=== PATIENT | male | born 1980 | race Caucasian/White ===

== ENCOUNTER 2019-08-14 01:26 | Emergency (ER) | payer SELFPAY ==
[~2019-08-14] VITALS: Ht 182 cm; Wt 56.0 kg
[2019-08-14] MEDS ORDERED: LACTATED RINGERS 1,000 ML IV ONE ×2 (01:42→03:21)
[2019-08-14] MEDS ORDERED: ONDANSETRON 4 MG/2 ML (SDV) Z0FRAN IVP ONE ×3 (01:45→04:30)
[2019-08-14 01:57] LABS: BASOPHILS % (AUTO) 0 % (0-10); EOSINOPHILS # (AUTO) 0.2 10^3/uL (0.0-0.3); EOSINOPHILS % (AUTO) 3 % (0-10); HEMATOCRIT 43 % (40-54); HEMOGLOBIN 14.9 G/DL (13.3-17.7); LYMPHOCYTES # (AUTO) 1.7 X 10^3 (1.0-4.0); LYMPHOCYTES % (AUTO) 25 % (12-44); MEAN CORPUSCULAR HEMOGLOBIN 32 PG (25-34); MEAN CORPUSCULAR HGB CONC 35 G/DL (32-36); MEAN CORPUSCULAR VOLUME 92 FL (80-99); MEAN PLATELET VOLUME 9.6 FL (7.4-10.4); MONOCYTES # (AUTO) 0.4 X 10^3 (0.0-1.0); MONOCYTES % (AUTO) 6 % (0-12); NEUTROPHILS # (AUTO) 4.5 X 10^3 (1.8-7.8); NEUTROPHILS % (AUTO) 66 % (42-75); PLATELET COUNT 231 10^3/uL (130-400); WHITE BLOOD COUNT 6.8 10^3/uL (4.3-11.0)
[2019-08-14] MEDS ORDERED: RT-ALBUTEROL/IPRATROPIUM 3 ML (DUONEB) VIAL INH ONE (02:00)
[2019-08-14 02:05] LABS: INR 0.9 (0.8-1.4); PROTHROMBIN TIME PATIENT 12.6 SEC (12.2-14.7)
[2019-08-14 02:14] LABS: ALANINE AMINOTRANSFERASE 43 U/L (0-55); ALBUMIN 4.6 GM/DL (3.2-4.5); ALKALINE PHOSPHATASE 95 U/L (40-136); BILIRUBIN,TOTAL 0.6 MG/DL (0.1-1.0); BUN/CREATININE RATIO 9; CALCIUM 9.3 MG/DL (8.5-10.1); CARBON DIOXIDE 21 MMOL/L (21-32); CHLORIDE 109 MMOL/L (98-107); CREATININE SERUM 0.78 MG/DL (0.60-1.30); GFR ESTIMATED > 60; GLUCOSE 109 MG/DL (70-105); MAGNESIUM 1.9 MG/DL (1.6-2.4); POTASSIUM 4.3 MMOL/L (3.6-5.0); SODIUM 145 MMOL/L (135-145); TOTAL PROTEIN 7.2 GM/DL (6.4-8.2)
[2019-08-14] MEDS ORDERED: TETANUS,DIPTH,PERTUSS P/F (BOOSTRIX) 0.5 ML VIAL IM ONE (03:15)
[2019-08-14] MEDS ORDERED: SCOPOLAMINE 1.5 MG (TRANSDERM-SCOP) PATCH TD ONE (03:15)
[2019-08-14] MEDS ORDERED: MECLIZINE 25 MG (ANTIVERT) TAB PO ONE ×2 (03:15→04:00)
[2019-08-14] MEDS ORDERED: KETOROLAC 30 MG/ML VIAL IVP ONE (03:15)
--- NOTE | 2019-08-14 03:16 | ED General ---
General Chief Complaint: Dizziness/Syncope Stated Complaint: FALL DIZZINESS/HEADACHE NAUSEA EARS RINGING Nursing Triage Note: Patient presented to the ER [facility] with complaints of nausea, dizziness, headache and his ears "ringing". Patient states he began not feeling well yesterday. He states that he felt his heart was racing and he felt weak. Nursing Sepsis Screen: No Definite Risk Source of Information: Patient (LIMITED HISTORIAN) History of Present Illness Date Seen by Provider: Aug 14, 2019 Time Seen by Provider: 01:33 Initial Comments PT ARRIVES VIA POV WITH 2 FEMALES STATES ON TUESDAY NIGHT 08/11/19, HE WAS VERY INTOXICATED AND HAD UNWITNESSED "FALL" VS SYNCOPAL EPISODE IS UNKNOWN IF OR HOW LONG HE WAS UNCONSCIOUS PT HAS NO RECOLLECTION OF THE EVENT, OR ANYTHING BEFORE OR AFTER IT. [facility] STATES SINCE YESTERDAY/TUESDAY HE HAS HAD DIZZINESS, NAUSEA, EARS RINGING, AND PAIN TO BACK AND TOP OF HIS HEAD--HAS LACERATION TO HIS CHIN AND BRUISING AND SORENESS TO RIGHT SHOULDER WELL. ALSO C/O PAIN TO THE BACK OF HIS NECK, MORE ON THE LEFT SIDE. 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 STATES HE DIDN'T FEEL GOOD ALL DAY, AND ATE DINNER, BUT DID NOT FEEL THIS BAD UNTIL WAKING PRIOR TO ARRIVAL LAST TETANUS VACCINATION IS UNKNOWN PCP : DR. LOPEZ Allergies and Home Medications Allergies Coded Allergies: No Allergy Information Available (Unverified , 08/14/19) Home Medications Doxycycline Monohydrate 100 Mg Capsule, 100 MG PO BID Prescribed by: ERIK HOWARD on 08/14/19419 Hydrocodone Bit/Acetaminophen 1 Tab Tab, 1 EACH PO Q4H PRN for PAIN-MODERATE Prescribed by: ERIK HOWARD on 08/14/19441 Meclizine HCl 25 Mg Tablet, 25-50 MG PO Q6H Prescribed by: ERIK HOWARD on 08/14/19419 Methylprednisolone 4 Mg Tab.ds.pk, 4 MG PO UD Prescribed by: ERIK HOWARD on 08/14/19419 Mupirocin 1 Gm Oin.pf.norberto, 1 GM TP BID Prescribed by: ERIK HOWARD on 08/14/19419 Ondansetron 8 Mg Tab.rapdis, 8 MG PO Q6H Prescribed by: ERIK HOWARD on 08/14/19419 Scopolamine 1 Each Patch.td72, 1 EACH TD Q72 HOURS Prescribed by: ERIK HOWARD on 08/14/19419 Patient Home Medication List Home Medication List Reviewed: Yes Review of Systems Review of Systems Constitutional: No diaphoresis; dizziness, weakness EENTM: nose congestion, other (RINGING IN EARS); No ear discharge, No blurred vision Respiratory: cough (STATES HE HAS HAD A NON-PRODUCTIVE COUGH FOR A MONTH, WITH WHEEZING); No dyspnea on exertion, No short of breath; wheezing Cardiovascular: see HPI; No chest pain, No edema; palpitations Gastrointestinal: see HPI; No abdominal pain, No diarrhea; nausea; No vomiting Genitourinary: no symptoms reported Musculoskeletal: see HPI, neck pain Skin: see HPI Psychiatric/Neurological: See HPI, Headache; Denies Numbness, Denies Paresthesia, Denies Seizure, Denies Tingling, Denies Weakness Hematologic/Lymphatic: No Symptoms Reported Immunological/Allergic: no symptoms reported Past Tenglhp-Wckbjp-Defsci Hx Past Med/Social Hx: Reviewed and Corrections made Patient Social History Alcohol Use: Regular Use (AT LEAST A 6 PACK EVERY DAY AND VERY HEAVY AT TIMES) Number of Drinks Today: 6 Alcohol Beverage of Choice: Beer Recreational Drug Use: Yes (THC) Drug of Choice: THC Smoking Status: Current Everyday Smoker (> 1 PPD) Type Used: Cigarettes Recent Foreign Travel: No Contact w/Someone Who Travel: No Recent Infectious Disease Expo: No Recent Hopitalizations: No Immunizations Up To Date Tetanus Booster (TDap): More than 5yrs Seasonal Allergies Seasonal Allergies: No Past Medical History Surgeries: No Respiratory: No Cardiac: No Neurological: Yes Headaches /Migraines Genitourinary: No Gastrointestinal: No Musculoskeletal: No Endocrine: No HEENT: No Cancer: No Psychosocial: No Integumentary: No Blood Disorders: No Physical Exam Vital Signs Vital Signs - First Documented 08/14/19 01:57 Temp 36.8 Pulse 74 Resp 16 B/P (MAP) 142/88 (106) Pulse Ox 99 O2 Delivery Room Air Capillary Refill : Less Than 3 Seconds Height, Weight, BMI Height: '" Weight: lbs. oz. kg; 16.00 BMI Method: General Appearance: No Apparent Distress, Thin, Other (REEKS OF CIGARETTES, AND HAS ODOR OF ETOH) HEENT: PERRL/EOMI, TMs Normal, Normal ENT Inspection, Pharynx Normal, Other (HAS A 2 CM GAPING, SCABBED LACERATION TO LEFT SIDE OF CHIN, NO BLEEDING OR SIGNS OF INFECTION, NO DRAINAGE. APPEARS TO HAVE MILD ECCHYMOSIS BELOW BOTH EYES, BUT FEMALE WITH PT STATES THAT IT LOOKS NORMAL. NARES NORMAL. NO TENDERNESS TO FACIAL BONES. NO SWELLING TO FACE. NO TMJ TENDERNESS. ) Neck: Limited Range of Motion, Tender Lateral, Tender Midline Respiratory: No Accessory Muscle Use, No Respiratory Distress, Wheezing (DIFFUSE EXPIRATORY WHEEZING BILATERALLY) Cardiovascular: Regular Rate, Rhythm, No Edema, No JVD, No Murmur, Normal Peripheral Pulses Gastrointestinal: Normal Bowel Sounds, No Organomegaly, No Pulsatile Mass, Non Tender, Soft Back: Normal Inspection, No CVA Tenderness, No Vertebral Tenderness Extremity: Normal Capillary Refill, Normal Range of Motion, Non Tender, No Calf Tenderness, No Pedal Edema, Other (BRUISING TO ANTERIOR ASPECT OF RIGHT SHOULDER, WITH TENDERNESS, NO DEFORMITY. ) Neurologic/Psychiatric: Alert, Oriented x3, No Motor/Sensory Deficits, plum packer II- XII Norm as Tested, Other (SLOW MENTATION; UNABLE TO PERFORM CEREBELLAR TESTS DUE TO NAUSEA AND DIZZINESS. NO NYSTAGMUS) Skin: Normal Color, Warm/Dry, Other (2 CM GAPING LACERATION TO LEFT SIDE OF CHIN, WITH EARLY SCAB FORMATION. NO DRAINAGE OR BLEEDING. NO SIGNS OF INFECTION) Progress/Results/Core Measures Suspected Sepsis Recent Fever Within 48 Hours: No Infection Criteria Present: None New/Unexplained Altered Menta: No Sepsis Screen: No Definite Risk SIRS Temperature: Pulse: 74 Respiratory Rate: 16 Laboratory Tests 08/14/19 01:46: White Blood Count 6.8 Blood Pressure 142 /88 Mean: 106 Laboratory Tests 08/14/19 01:46: Creatinine 0.78, INR Comment 0.9, Platelet Count 231, Total Bilirubin 0.6 Results/Orders Lab Results Laboratory Tests Test 08/14/19 01:46 08/14/19 04:59 Range/Units White Blood Count 6.8 4.3-11.0 10^3/uL Red Blood Count 4.66 4.35-5.85 10^6/uL Hemoglobin 14.9 13.3-17.7 G/DL Hematocrit 43 40-54 % Mean Corpuscular Volume 92 80-99 FL Mean Corpuscular Hemoglobin 32 25-34 PG Mean Corpuscular Hemoglobin Concent 35 32-36 G/DL Red Cell Distribution Width 13.0 10.0-14.5 % Platelet Count 231 130-400 10^3/uL Mean Platelet Volume 9.6 7.4-10.4 FL Neutrophils (%) (Auto) 66 42-75 % Lymphocytes (%) (Auto) 25 12-44 % Monocytes (%) (Auto) 6 0-12 % Eosinophils (%) (Auto) 3 0-10 % Basophils (%) (Auto) 0 0-10 % Neutrophils # (Auto) 4.5 1.8-7.8 X 10^3 Lymphocytes # (Auto) 1.7 1.0-4.0 X 10^3 Monocytes # (Auto) 0.4 0.0-1.0 X 10^3 Eosinophils # (Auto) 0.2 0.0-0.3 10^3/uL Basophils # (Auto) 0.0 0.0-0.1 10^3/uL Prothrombin Time 12.6 12.2-14.7 SEC INR Comment 0.9 0.8-1.4 Activated Partial Thromboplast Time 24 24-35 SEC Sodium Level 145 135-145 MMOL/L Potassium Level 4.3 3.6-5.0 MMOL/L Chloride Level 109 H 98-107 MMOL/L Carbon Dioxide Level 21 21-32 MMOL/L Anion Gap 15 H 5-14 MMOL/L Blood Urea Nitrogen 7 7-18 MG/DL Creatinine 0.78 0.60-1.30 MG/DL Estimat Glomerular Filtration Rate > 60 BUN/Creatinine Ratio 9 Glucose Level 109 H 70-105 MG/DL Calcium Level 9.3 8.5-10.1 MG/DL Corrected Calcium 8.5-10.1 MG/DL Magnesium Level 1.9 1.6-2.4 MG/DL Total Bilirubin 0.6 0.1-1.0 MG/DL Aspartate Amino Transf (AST/SGOT) 55 H 5-34 U/L Alanine Aminotransferase (ALT/SGPT) 43 0-55 U/L Alkaline Phosphatase 95 40-136 U/L Total Protein 7.2 6.4-8.2 GM/DL Albumin 4.6 H 3.2-4.5 GM/DL Serum Alcohol 56 H <10 MG/DL Urine Color YELLOW Urine Clarity CLEAR Urine pH 6.5 5-9 Urine Specific [place] 1.025 H 1.016-1.022 Urine Protein NEGATIVE NEGATIVE Urine Glucose (UA) NEGATIVE NEGATIVE Urine Ketones 1+ H NEGATIVE Urine Nitrite NEGATIVE NEGATIVE Urine Bilirubin NEGATIVE NEGATIVE Urine Urobilinogen 0.2 < = 1.0 MG/DL Urine Leukocyte Esterase NEGATIVE NEGATIVE Urine RBC (Auto) NEGATIVE NEGATIVE Urine RBC NONE /HPF Urine WBC NONE /HPF Urine Squamous Epithelial Cells 0-2 /HPF Urine Crystals NONE /LPF Urine Bacteria NEGATIVE /HPF Urine Casts NONE /LPF Urine Mucus LARGE H /LPF Urine Culture Indicated NO Urine Opiates Screen NEGATIVE NEGATIVE Urine Oxycodone Screen NEGATIVE NEGATIVE Urine Methadone Screen NEGATIVE NEGATIVE Urine Propoxyphene Screen NEGATIVE NEGATIVE Urine Barbiturates Screen NEGATIVE NEGATIVE Ur Tricyclic Antidepressants Screen NEGATIVE NEGATIVE Urine Phencyclidine Screen NEGATIVE NEGATIVE Urine Amphetamines Screen NEGATIVE NEGATIVE Urine Methamphetamines Screen NEGATIVE NEGATIVE Urine Benzodiazepines Screen NEGATIVE NEGATIVE Urine Cocaine Screen NEGATIVE NEGATIVE Urine Cannabinoids Screen POSITIVE H NEGATIVE My Orders Orders - ERIK HOWARD DO Ed Iv/Invasive Line Start (08/14/19 01:42) Ekg Tracing (08/14/19 01:42) Monitor-Rhythm Ecg Trace Only (08/14/19 01:42) Shoulder, Right, 3 Views (08/14/19 01:42) Alcohol (08/14/19 01:42) Cbc With Automated Diff (08/14/19 01:42) Comprehensive Metabolic Panel (08/14/19 01:42) Drug Screen Stat (Urine) (08/14/19 01:42) Magnesium (08/14/19 01:42) Protime With Inr (08/14/19 01:42) Partial Thromboplastin Time (08/14/19 01:42) Ua Culture If Indicated (08/14/19 01:42) Ed Iv/Invasive Line Start (08/14/19 01:42) Lactated Ringers (Lr 1000 Ml Iv Solution (08/14/19 01:42) Ondansetron Injection (Zofran Injectio (08/14/19 01:45) Albuterol/Ipra Inhalation Soln (Duoneb I (08/14/19 02:00) Rt Request For Service (08/14/19 01:53) Svn Small Volume Nebulizer (08/14/19 01:53) Chest Pa/Lat (2 View) (08/14/19 01:53) Ct Head/Face/Cervical Wo (08/14/19 01:55) Ketorolac Injection (Toradol Injection) (08/14/19 03:15) Dipht,Pertuss(Acell),Tet Adult (Boostrix (08/14/19 03:15) Ct Cervical Spine Wo (08/14/19 03:04) Meclizine Tablet (Antivert Tablet) (08/14/19 03:15) Scopolamine Patch (Transderm-Scop Patch) (08/14/19 03:15) Ondansetron Injection (Zofran Injectio (08/14/19 03:30) Ed Iv/Invasive Line Start (08/14/19 03:21) Lactated Ringers (Lr 1000 Ml Iv Solution (08/14/19 03:21) Meclizine Tablet (Antivert Tablet) (08/14/19 04:00) Fentanyl Injection (Sublimaze Injection (08/14/19 04:15) Ondansetron Injection (Zofran Injectio (08/14/19 04:30) Promethazine Injection (Phenergan Injec (08/14/19 05:30) Diphenhydramine Injection (Benadryl Inje (08/14/19 05:30) Medications Given in ED Current Medications Medications Dose Ordered Sig/Terri Route Start Time Stop Time Status Last Admin Dose Admin Albuterol/ Ipratropium 3 ml ONCE ONCE INH 08/14/19 02:00 08/14/19 02:01 DC 08/14/19 02:33 3 ML Diphenhydramine HCl 25 mg ONCE ONCE IM 08/14/19 05:30 08/14/19 05:31 DC 08/14/19 05:39 25 MG Diphtheria/ Tetanus/Acell Pertussis 0.5 ml ONCE ONCE IM 08/14/19 03:15 08/14/19 03:17 DC 08/14/19 03:18 0.5 ML Fentanyl Citrate 50 mcg ONCE ONCE IVP 08/14/19 04:15 08/14/19 04:16 DC 08/14/19 04:20 50 MCG Ketorolac Tromethamine 30 mg ONCE ONCE IVP 08/14/19 03:15 08/14/19 03:17 DC 08/14/19 03:19 30 MG Lactated Ringer's 1,000 ml @ 0 mls/hr Q0M ONCE IV 08/14/19 01:42 08/14/19 01:44 DC 08/14/19 01:52 0 MLS/HR Lactated Ringer's 1,000 ml @ 0 mls/hr Q0M ONCE IV 08/14/19 03:21 08/14/19 03:22 DC 08/14/19 03:56 0 MLS/HR Meclizine HCl 50 mg ONCE ONCE PO 08/14/19 03:15 08/14/19 03:17 DC 08/14/19 03:19 50 MG Meclizine HCl 50 mg ONCE ONCE PO 08/14/19 04:00 08/14/19 04:01 DC 08/14/19 04:11 50 MG Ondansetron HCl 4 mg ONCE ONCE IVP 08/14/19 01:45 08/14/19 01:46 DC 08/14/19 01:52 4 MG Ondansetron HCl 8 mg ONCE ONCE IVP 08/14/19 03:30 08/14/19 03:33 DC 08/14/19 03:48 8 MG Ondansetron HCl 8 mg ONCE ONCE IVP 08/14/19 04:30 08/14/19 05:36 DC 08/14/19 04:35 8 MG Promethazine HCl 25 mg ONCE ONCE IM 08/14/19 05:30 08/14/19 05:31 DC 08/14/19 05:39 25 MG Scopolamine 1.5 mg ONCE ONCE TD 08/14/19 03:15 08/14/19 03:17 DC 08/14/19 03:19 1.5 MG Vital Signs/I&O 08/14/19 08/14/19 08/14/19 01:57 02:33 05:18 Temp 36.8 Pulse 74 77 Resp 16 16 B/P (MAP) 142/88 (106) 140/100 Pulse Ox 99 99 98 O2 Delivery Room Air Room Air Room Air Capillary Refill : Less Than 3 Seconds Blood Pressure Mean: 106 POS Progress Note : Progress Note NO REPAIR DONE ON CHIN LACERATION, IT IS OVER 48 HOURS OLD, AND HAS EARLY SCAB FORMATION PT GIVEN SCOPOLAMINE PATCH AND ANTIVERT FOR CONTINUED DIZZINESS GIVEN TORADOL AND LATER FENTANYL AFTER RECEIVING HEAD CT RESULTS FOR CONTINUED HEADACHE 0320--PT NOW WITH VOMITING--ADDITIONAL ZOFRAN GIVEN AND LATER ADDITIONAL DOSE FOR CONTINUED NAUSEA PT WAS BEING DISMISSED, HE STARTED HAVING NAUSEA AND VOMITED AGAIN--GIVEN PHENERGAN AND BENADRYL PT STATES RINGING IN EARS IS IMPROVED, AND NAUSEA, DIZZINESS, AND HEADACHE ARE IMPROVED AT DISMISSAL GAVE NEB TREATMENT WITH INCREASED AERATION AND DECREASED WHEEZING ECG Initial ECG Impression Date: Aug 14, 2019 Initial ECG Impression Time: 01:38 Initial ECG Rate: 73 Initial ECG Rhythm: Normal Sinus Diagnostic Imaging Comments CXR--? RLL INFILTRATE ? PENDING RADIOLOGIST REVIEW XRAYS RIGHT SHOULDER--NO ACUTE PROCESS, PENDING RADIOLOGIST REVIEW CT HEAD/MAXILLOFACIALS/CERVICAL SPINE--WILL REPEAT CT OF C-SPINE DUE TO TOO MUCH MOTION ARTIFACT, ADVISED BY RADIOLOGIST. CT HEAD--INTRACRANIAL MASS OF LEFT BRITNEY AREA-LIKELY SCHW[place]; AND SPECIFICALLY NO INTRACRANIAL BLEED. NO FACIAL BONE ABNORMALITIES. PER RADIOLOGIST VIA PHONE AT [phone] AND VIA FAX AT [phone] CT CERVICAL SPINE--NO ACUTE PROCESS, PER [facility] VIA FAX AT [phone] Reviewed: Reviewed by Me, Discussed w/Radiologist Departure Impression Primary Impression: CONCUSSION WITH UNKNOWN LOSS OF CONSCIOUSNESS Additional Impressions: Intracranial mass Alcohol abuse Dizziness Nausea & vomiting CERVICAL SPINE STRAIN Chin laceration Iwaiodjjkc-noyzzexex-lvcplgz (DPT) vaccination administered at current visit RLL pneumonia Marijuana use Disposition: HOME, SELF-CARE Condition: Improved Departure-Patient Inst. Referrals: GEE LOPEZ MD (PCP/Family) Primary Care Physician Patient Instructions: Alcohol Abuse and Alcoholism (DC), Brain Tumor, Adult (DC), Concussion, Adult (DC), Effects of Alcohol on Your Health, Pneumonia, Adult (DC), SMOKING CESSATION, Vertigo (a Type of Dizziness) (DC), Wound Care (DC) Add. Discharge Instructions: SLOW POSITION CHANGES LOTS OF CLEAR LIQUIDS--WATER, BROTH, JELLO, GATORADE NO ALCOHOL!! NO SMOKING!! CLEAN WOUND TWICE A DAY WITH ANTIBACTERIAL SOAP AND WATER, AND APPLY ANTIBIOTIC OINTMENT TO AREA TWICE A DAY TYLENOL AND MOTRIN NEEDED FOR PAIN CALL IN AM TO ARRANGE FOR OUTPATIENT MRI FOLLOW UP WITH DR. LOPEZ THIS WEEK FOR FURTHER CARE AND TEST RESULTS OF MRI NO DRIVING, OR OPERATING ANY MACHINERY OR EQUIPMENT UNTIL CLEARED BY YOUR DR. All discharge instructions reviewed with patient and/or family. Voiced understanding. Scripts Hydrocodone Bit/Acetaminophen (Hydrocodone/Acetaminophen 5/325mg Tablet) 1 Tab Tab 1 EACH PO Q4H PRN for PAIN-MODERATE MDD 10 for 3 Days, #10 TAB Prov: LEEERIK Jesse HIGHTOWER 08/14/19 Mupirocin (Mupirocin) 1 Gm Oin.pf.norberto 1 GM TP BID, #22 TUBE Prov: ERIK HOWARD DO 08/14/19 Ondansetron (Ondansetron Odt) 8 Mg Tab.rapdis 8 MG PO Q6H for Nausea/Vomiting, #10 TAB Prov: ERIK HOWARD DO 08/14/19 Meclizine HCl (Meclizine HCl) 25 Mg Tablet 25-50 MG PO Q6H for Dizziness, #30 TAB Prov: LEEERIK Molina 08/14/19 Scopolamine (Transderm-Scop) 1 Each Patch.td72 1 EACH TD Q72 HOURS for Dizziness, #3 PATCH Prov: ERIK HOWARD DO 08/14/19 Methylprednisolone (Medrol) 4 Mg Tab.ds.pk 4 MG PO UD, #1 PKG Prov: ERIK HOWARD DO 08/14/19 Doxycycline Monohydrate (Doxycycline Monohydrate) 100 Mg Capsule 100 MG PO BID, #20 CAP Prov: ERIK HOWARD DO 08/14/19 LEEERIK Molina Aug 14, 2019 03:16 POS
[2019-08-14] MEDS ORDERED: fentaNYL INJECTION 100 MCG/2 ML AMP IVP ONE (04:15)
[2019-08-14] MEDS ORDERED: METH4TAB PO (04:20)
[2019-08-14] MEDS ORDERED: SCOP1PAT11 TD (04:20)
[2019-08-14] MEDS ORDERED: ONDA8TAB13 PO (04:20)
[2019-08-14] MEDS ORDERED: MUPI1OIN6 TP (04:20)
[2019-08-14] MEDS ORDERED: MECL-106 PO (04:20)
[2019-08-14] MEDS ORDERED: DOXY100C42 PO (04:20)
[2019-08-14] MEDS ORDERED: ACHD5005 PO (04:42)
[2019-08-14 05:09] LABS: BILIRUBIN,URINE NEGATIVE (NEGATIVE); CLARITY,URINE CLEAR; COLOR,URINE YELLOW; GLUCOSE, URINE (UA) NEGATIVE (NEGATIVE); KETONES,URINE 1+ (NEGATIVE); LEUKOCYTE ESTERASE ,URINE NEGATIVE (NEGATIVE); NITRITE,URINE NEGATIVE (NEGATIVE); PH,URINE 6.5 (5-9); PROTEIN,URINE NEGATIVE (NEGATIVE)
[2019-08-14 05:18] VITALS: BP 140/100
[2019-08-14 05:22] LABS: BACTERIA,URINE NEGATIVE /HPF; SQUAMOUS EPITHELIAL CELL,UR 0-2 /HPF
[2019-08-14 05:23] LABS: AMPHETAMINE SCREEN, URINE NEGATIVE (NEGATIVE); BARBITURATE SCREEN URINE NEGATIVE (NEGATIVE); BENZODIAZEPINES SCREEN URINE NEGATIVE (NEGATIVE); CANNABINOID SCREEN, URINE POSITIVE (NEGATIVE); COCAINE SCREEN URINE NEGATIVE (NEGATIVE); METHADONE STAT NEGATIVE (NEGATIVE); METHAMPHETAMINE SCREEN URINE S NEGATIVE (NEGATIVE); OPIATE SCREEN URINE NEGATIVE (NEGATIVE); OXYCODONE STAT NEGATIVE (NEGATIVE); PROPOXYPHENE STAT NEGATIVE (NEGATIVE); TRICYCLIC ANTIDEPRESSANTS SCRE NEGATIVE (NEGATIVE)
[2019-08-14] MEDS ORDERED: PROMETHAZINE INJ 25 MG/ML (PHENERGAN) AMP IM ONE (05:30)
[2019-08-14] MEDS ORDERED: diphenhydrAMINE 50 MG/ML INJ (BENADRYL) IM ONE (05:30)
--- NOTE | 2019-08-14 05:52 | Diagnostic Imaging Report ---
PROCEDURE: CT head, face, and cervical spine without contrast. TECHNIQUE: Multiple contiguous axial images were obtained through the head, neck, and facial bones without the use of intravenous contrast. Sagittal and coronal reformations through the cervical spine and facial bones were also performed. Auto Exposure Controls were utilized during the CT exam to meet ALARA standards for radiation dose reduction. INDICATION: Nausea. Dizziness. Headache. Fall. COMPARISON: None. FINDINGS: CT head and maxillofacial: 1.4 cm focus of hemorrhage in the posterior left eddie along the superior margin of the left middle cerebellar peduncle. This appears primarily extra-axial but could be originating intraparenchymally. No hydrocephalus. No CT evidence of territorial infarction. The skull base and calvarium are intact. Mild mucosal thickening in the left maxillary sinus. The paranasal sinuses are otherwise clear. The mastoids and middle ears are clear. Normal alignment of the temporomandibular joints. No maxillofacial fractures. CT cervical spine: Examination is markedly limited by motion. No fractures are identified. Alignment appears normal. Visualized paravertebral soft tissues are grossly unremarkable. Lung apices are clear. IMPRESSION: 1. A 1.4 cm intracranial hemorrhage along the posterior left eddie appears primarily extra-axial. Findings are suspicious for underlying mass. Recommend further evaluation with MRI without and with IV contrast. 2. Mild mucosal thickening in the left maxillary sinus. Maxillofacial CT is otherwise unremarkable. 3. CT of the cervical spine is limited by motion. Recommend repeat exam, possibly MRI. Dictated by: Dictated on workstation # [id number]
--- NOTE | 2019-08-14 06:47 | Diagnostic Imaging Report ---
PROCEDURE: CT cervical spine without contrast. TECHNIQUE: Multiple contiguous axial images were obtained through the cervical spine without the use of intravenous contrast. Sagittal and coronal reformations were then performed. Auto Exposure Controls were utilized during the CT exam to meet ALARA standards for radiation dose reduction. INDICATION: Fall. Trauma. COMPARISON: CT cervical spine performed earlier today but affected by motion artifact. FINDINGS: Normal alignment. Vertebral body heights preserved. No fractures. No substantial spondylotic change or evidence of neural impingement. The visualized paravertebral soft tissues are unremarkable. IMPRESSION: Negative cervical spine CT. Dictated by: Dictated on workstation # [id number]
--- NOTE | 2019-08-14 06:55 | Diagnostic Imaging Report ---
INDICATION: Status post fall, pain TECHNIQUE: Three views of the right shoulder CORRELATION STUDY: None FINDINGS: The glenohumeral and acromioclavicular alignment are maintained and unremarkable. There is no evidence for acute fracture or dislocation. The visualized soft tissues are unremarkable. IMPRESSION: 1. Negative for acute bony abnormality about the shoulder. Dictated by: Dictated on workstation # [id number]
--- NOTE | 2019-08-14 06:56 | Diagnostic Imaging Report ---
INDICATION: Status post fall. TECHNIQUE: Two view chest 2 4:00 AM CORRELATION STUDY: None FINDINGS: The heart size, mediastinal configuration and pulmonary vasculature are within normal limits. The lungs are slightly hyperinflated but appearing clear with no consolidating infiltrate. There is no significant pleural effusion or pneumothorax. Visualized osseous structures are unremarkable. IMPRESSION: 1. Negative for acute traumatic abnormality of the chest. Dictated by: Dictated on workstation # [id number]
--- OUTSIDE RECORDS SUMMARY | 2019-09-08 01:04 | XMS REPORT | Continuity of Care Document ---
Author Organization Unknown Address Unknown Phone Unavailable Allergies Active Description Code Type Severity Reaction Onset Reported/Identified Relationship to Patient Clinical Status Yes No Allergy Information Available [id number] Drug Allergy Unknown N/A 019 Medications There is no data. Problems Date Dx Coded Attending Type Code Diagnosis Diagnosed By 08/18/2019 ERIK HOWARD DO, Ot F10.10 ALCOHOL ABUSE, UNCOMPLICATED 08/18/2019 ERIK HOWARD DO, Ot F12.10 CANNABIS ABUSE, UNCOMPLICATED 08/18/2019 ERIK HOWARD DO Ot F17.210 NICOTINE DEPENDENCE, CIGARETTES, UNCOMPL 08/18/2019 ERIK HOWARD DO Ot G43.909 MIGRAINE, UNSP, NOT INTRACTABLE, WITHOUT 08/18/2019 ERIK HOWARD DO Ot G93.89 OTHER SPECIFIED DISORDERS OF BRAIN 08/18/2019 ERIK HOWARD DO Ot J18.1 LOBAR PNEUMONIA, UNSPECIFIED ORGANISM 08/18/2019 ERIK HOWARD DO Ot R42 DIZZINESS AND GIDDINESS 08/18/2019 ERIK HOWARD DO Ot S01.81X A LACERATION W/O FOREIGN BODY OF OTH PART 08/18/2019 ERIK HOWARD DO Ot S06.0X0 A CONCUSSION WITHOUT LOSS OF CONSCIOUSNESS 08/18/2019 ERIK HOWARD DO Ot S16.1XX A STRAIN OF MUSCLE, FASCIA AND TENDON AT N 08/18/2019 ERIK HOWARD DO Ot W19.XXX A UNSPECIFIED FALL, INITIAL ENCOUNTER 08/18/2019 ERIK HOWARD DO Ot Y90.2 BLOOD ALCOHOL LEVEL OF 40-59 MG/100 ML 08/18/2019 ERIK HOWARD DO, Ot Z23 ENCOUNTER FOR IMMUNIZATION Procedures There is no data. Results Test Result Range Complete blood count (CBC) with automate d white blood cell (WBC) differential - 08/14/19 01:46 Blood leukocytes automated count (number/volume) 6.8 10*3/uL 4.3-11.0 Blood erythrocytes automated count (number/volume) 4.66 10*6/uL 4.35-5.85 Venous blood hemoglobin measurement (mass/volume) 14.9 g/dL 13.3-17.7 Blood hematocrit (volume fraction) 43 % 40-54 Automated erythrocyte mean corpuscular volume 92 [ foz_us] 80-99 Automated erythrocyte mean corpuscular h emoglobin (mass per erythrocyte) 32 pg 25-34 Automated erythrocyte mean corpuscular h emoglobin concentration measurement (mass/volume) 35 g/dL 32-36 Automated erythrocyte distribution width ratio 13. 0 % 10.0- 14.5 Automated blood platelet count (count/volume) 231 10*3/uL 130-400 Automated blood platelet mean volume measurement 9.6 [foz_us] 7.4-10.4 Automated blood neutrophils/100 leukocytes 66 % 42-75 Automated blood lymphocytes/100 leukocytes 25 % 12-44 Blood monocytes/100 leukocytes 6 % 0-12 Automated blood eosinophils/100 leukocytes 3 % 0-10 Automated blood basophils/100 leukocytes 0 % 0-10 Blood neutrophils automated count (number/volume) 4.5 10*3 1.8-7.8 Blood lymphocytes automated count (number/volume) 1.7 10*3 1.0-4.0 Blood monocytes automated count (number/volume) 0. 4 10*3 0.0-1.0 Automated eosinophil count 0.2 10*3/uL 0 .0-0.3 Automated blood basophil count (count/volume) 0.0 10*3/uL 0.0-0.1 PT panel in platelet poor plasma by coag ulation assay - 08/14/19 01:46 Prothrombin time (PT) in platelet poor plasma by coagu lation assay 12.6 s 12.2-14.7 INR in platelet poor plasma or blood by coagulation as say 0.9 0.8-1.4 Activated partial thromboplastin time (a PTT) in platelet poor plasma bycoagulation assay - 08/14/19 01:46 Activated partial thromboplastin time (a PTT) in platelet poor plasma bycoagulation assay 24 s 24-35 Comprehensive metabolic panel - 08/14/19 01:46 Serum or plasma sodium measurement (moles/volume) 145 mmol/L 135-145 Serum or plasma potassium measurement (moles/volume) 4.3 mmol/L 3.6-5.0 Serum or plasma chloride measurement (moles/volume) 109 mmol/L 98-107 Carbon dioxide 21 mmol/L 21-32 Serum or plasma anion gap determination (moles/volume) 15 mmol/L 5-14 Serum or plasma urea nitrogen measurement (mass/volume ) 7 mg/dL 7-18 Serum or plasma creatinine measurement (mass/volume) 0.78 mg/dL 0.60-1.30 Serum or plasma urea nitrogen/creatinine mass ratio 9 NRG Serum or plasma creatinine measurement w ith calculation of estimated glomerular filtration rate > NRG Serum or plasma glucose measurement (mass/volume) 109 mg/dL 70-105 Serum or plasma calcium measurement (mass/volume) 9.3 mg/dL 8.5-10.1 Serum or plasma total bilirubin measurement (mass/volu me) 0.6 mg/dL 0.1-1.0 Serum or plasma alkaline phosphatase stacey surement (enzymatic activity/volume) 95 U/L 40-136 Serum or plasma aspartate aminotransfera se measurement (enzymatic activity/volume) 55 U/L 5-34 Serum or plasma alanine aminotransferase measurement (enzymatic activity/volume) 43 U/L 0-55 Serum or plasma protein measurement (mass/volume) 7.2 g/dL 6.4-8.2 Serum or plasma albumin measurement (mass/volume) 4.6 g/dL 3.2-4.5 Magnesium - 08/14/19 01:46 Magnesium 1.9 mg/dL 1.6-2.4 Serum or plasma ethanol measurement (mas s/volume) - 08/14/19 01:46 Serum or plasma ethanol measurement (mass/volume) 56 mg/dL <10 Complete urinalysis with reflex to cultu re - 08/14/19 04:59 Urine color determination YELLOW NRG Urine clarity determination CLEAR NR G Urine pH measurement by test strip 6.5 5-9 Specific gravity of urine by test strip 1.025 1.016-1.022 Urine protein assay by test strip, semi-quantitative NEGATIVE NEGATIVE Urine glucose detection by automated test strip NE GATIVE NEGATIVE Erythrocytes detection in urine sediment by light micr oscopy NEGATIVE NEGATIVE Urine ketones detection by automated test strip 1+ NEGATIVE Urine nitrite detection by test strip NEGATIVE NEGATIVE Urine total bilirubin detection by test strip NEGA TIVE NEGATIVE Urine urobilinogen measurement by automated test strip (mass/volume) 0.2 mg/dL < = 1.0 Urine leukocyte esterase detection by dipstick NEG ATIVE NEGATIVE Automated urine sediment erythrocyte cou nt by microscopy (number/high power field) NONE NRG Automated urine sediment leukocyte count by microscopy (number/high power field) NONE NRG Bacteria detection in urine sediment by light microsco py NEGATIVE NRG Squamous epithelial cells detection in u rine sediment by light microscopy 0-2 NRG Crystals detection in urine sediment by light microsco py NONE NRG Casts detection in urine sediment by light microscopy NONE NRG Mucus detection in urine sediment by light microscopy LARGE NRG Complete urinalysis with reflex to culture NO NRG Urine drug screening test - 08/14/19 04: 59 Urine phencyclidine detection by screening method NEGATIVE NEGATIVE Urine benzodiazepines detection by screening method NEGATIVE NEGATIVE Urine cocaine detection NEGATIVE NEGATI VE Urine amphetamines detection by screening method N EGATIVE NEGATIVE Urine methamphetamine detection by screening method NEGATIVE NEGATIVE Urine cannabinoids detection by screening method P OSITIVE NEGATIVE Urine opiates detection by screening method NEGATI VE NEGATIVE Urine barbiturates detection NEGATIVE N EGATIVE Screening urine tricyclic antidepressants detection NEGATIVE NEGATIVE Urine methadone detection by screening method NEGA TIVE NEGATIVE Urine oxycodone detection NEGATIVE NEGA TIVE Urine propoxyphene detection NEGATIVE N EGATIVE Complete blood count (CBC) with automate d white blood cell (WBC) differential - 08/15/19 12:15 Blood leukocytes automated count (number/volume) 9.6 10*3/uL 4.3-11.0 Blood erythrocytes automated count (number/volume) 4.96 10*6/uL 4.35-5.85 Venous blood hemoglobin measurement (mass/volume) 15.4 g/dL 13.3-17.7 Blood hematocrit (volume fraction) 47 % 40-54 Automated erythrocyte mean corpuscular volume 94 [ foz_us] 80-99 Automated erythrocyte mean corpuscular h emoglobin (mass per erythrocyte) 31 pg 25-34 Automated erythrocyte mean corpuscular h emoglobin concentration measurement (mass/volume) 33 g/dL 32-36 Automated erythrocyte distribution width ratio 13. 6 % 10.0- 14.5 Automated blood platelet count (count/volume) 222 10*3/uL 130-400 Automated blood platelet mean volume measurement 10.2 [foz_us] 7.4-10.4 Automated blood neutrophils/100 leukocytes 86 % 42-75 Automated blood lymphocytes/100 leukocytes 9 % 12-44 Blood monocytes/100 leukocytes 5 % 0-12 Automated blood eosinophils/100 leukocytes 0 % 0-10 Automated blood basophils/100 leukocytes 0 % 0-10 Blood neutrophils automated count (number/volume) 8.3 10*3 1.8-7.8 Blood lymphocytes automated count (number/volume) 0.8 10*3 1.0-4.0 Blood monocytes automated count (number/volume) 0. 5 10*3 0.0-1.0 Automated eosinophil count 0.0 10*3/uL 0 .0-0.3 Automated blood basophil count (count/volume) 0.0 10*3/uL 0.0-0.1 PT panel in platelet poor plasma by coag ulation assay - 08/15/19 12:15 Prothrombin time (PT) in platelet poor plasma by coagu lation assay 12.7 s 12.2-14.7 INR in platelet poor plasma or blood by coagulation as say 0.9 0.8-1.4 Manual absolute plasma cell count - 12/29 12:15 Blood monocytes/100 leukocytes 8 % NR Manual blood segmented neutrophils/100 leukocytes 82 % NRG Manual blood lymphocytes/100 leukocytes 10 % NR Blood erythrocyte morphology finding identification [facility] Comprehensive metabolic panel - 08/15/19 12:15 Serum or plasma sodium measurement (moles/volume) 144 mmol/L 135-145 Serum or plasma potassium measurement (moles/volume) 4.0 mmol/L 3.6-5.0 Serum or plasma chloride measurement (moles/volume) 108 mmol/L 98-107 Carbon dioxide 28 mmol/L 21-32 Serum or plasma anion gap determination (moles/volume) 8 mmol/L 5-14 Serum or plasma urea nitrogen measurement (mass/volume ) 5 mg/dL 7-18 Serum or plasma creatinine measurement (mass/volume) 0.82 mg/dL 0.60-1.30 Serum or plasma urea nitrogen/creatinine mass ratio 6 NRG Serum or plasma creatinine measurement w ith calculation of estimated glomerular filtration rate > NRG Serum or plasma glucose measurement (mass/volume) 104 mg/dL 70-105 Serum or plasma calcium measurement (mass/volume) 10.3 mg/dL 8.5-10.1 Serum or plasma total bilirubin measurement (mass/volu me) 1.3 mg/dL 0.1-1.0 Serum or plasma alkaline phosphatase stacey surement (enzymatic activity/volume) 87 U/L 40-136 Serum or plasma aspartate aminotransfera se measurement (enzymatic activity/volume) 60 U/L 5-34 Serum or plasma alanine aminotransferase measurement (enzymatic activity/volume) 48 U/L 0-55 Serum or plasma protein measurement (mass/volume) 7.8 g/dL 6.4-8.2 Serum or plasma albumin measurement (mass/volume) 4.9 g/dL 3.2-4.5 Serum or plasma ethanol measurement (mas s/volume) - 08/15/19 12:15 Serum or plasma ethanol measurement (mass/volume) < mg/dL <10 Encounters ACCT No. Visit Date/Time Discharge Status Pt. Type Provider Facility Loc./Unit Complaint [id number] 08/15/2019 11:42:00 15:11:00 DIS Emergency FERNANDEZ MCMANUS APRN [facility] ER HEAD INJ [id number] 08/14/2019 08:42:00 23:59:59 CLS Preadmit ERIK HOWARD DO [facility] RAD INTRACRANIAL MASS [id number] 08/14/2019 01:28:00 05:39:00 DIS Outpatient ERIK HOWARD DO [facility] ER FALL DIZZINESS/HEADACHE NAUSEA EARS RINGING
== END 2019-08-14 05:39 | disposition home or self-care (01) ==
LOC: ER 01:28
DX: S06.0X0A Concussion without loss of consciousness, initial encounter (principal); S16.1XXA Strain of muscle, fascia and tendon at neck level, initial encounter; S01.81XA Laceration without foreign body of other part of head, initial encounter; G93.89 Other specified disorders of brain; J18.1 Lobar pneumonia, unspecified organism; F10.10 Alcohol abuse, uncomplicated; G43.909 Migraine, unspecified, not intractable, without status migrainosus; F12.10 Cannabis abuse, uncomplicated; F17.210 Nicotine dependence, cigarettes, uncomplicated; Z23 Encounter for immunization; Y90.2 Blood alcohol level of 40-59 mg/100 ml; W19.XXXA Unspecified fall, initial encounter
CPT/HCPCS: 36415; 70450; 70486; 71046; 72125; 73030; 80053; 80306; 80320; 81000; 83735; 85025; 85610; 85730; 90471; 90715; 93005; 93041; 94640; 94760; 96361; 96372; 96374; 96375; 96376

== ENCOUNTER 2019-08-15 11:41 | Emergency (ER) | payer OTHER ==
[~2019-08-15] VITALS: Ht 182 cm; Wt 68.0 kg
[~2019-08-15 11:41] MED LIST: ACHD5005 PO; DOXY100C42 PO; MECL-106 PO; METH4TAB PO; MUPI1OIN6 TP; ONDA8TAB13 PO; SCOP1PAT11 TD
--- NOTE | 2019-08-15 12:01 | ED Headache ---
General Chief Complaint: Head/Cervical Problems Stated Complaint: HEAD INJ Source: patient Exam Limitations: no limitations History of Present Illness Date Seen by Provider: Aug 15, 2019 Time Seen by Provider: 11:57 Initial Comments To ER with reports of abnormal MRI. He was seen here 2 days ago, mainly at night after a fall off of the porch while intoxicated about 3 days prior to that. His symptoms were nausea headache ringing in his ears and loss of balance. The teleradiology report showed no intracranial bleed, suspicion of a mass near the eddie. This was over read by radiology department yesterday morning as a 1.4 cm area of hemorrhage. He had an outpatient MRI in [place] today, this was without contrast. This shows a suspected hemorrhage in the left posterior paramesencephalic cistern which may be thrombus within an aneurysm. There is mass effect on the left side of the eddie superior aspect of the brachium pontis. There has probably been distal embolization with infarction in the distribution of the superior cerebellar artery. He is brought to ER by his today, he states that his symptoms of dizziness loss of balance headache and nausea are improved, headache persists but is better. Additionally, he does drink at least a sixpack of beer daily and has had none since Tuesday. Timing/Duration: constant Severity/Quality: moderate Prior Headaches/Recent Trauma: head trauma > 24 hrs ago Associated Symptoms: No confusion; nausea/vomiting (improving) Allergies and Home Medications Allergies Coded Allergies: No Allergy Information Available (Unverified , 08/14/19) Home Medications Doxycycline Monohydrate 100 Mg Capsule, 100 MG PO BID Prescribed by: ERIK HOWARD on 08/14/19419 Hydrocodone Bit/Acetaminophen 1 Tab Tab, 1 EACH PO Q4H PRN for PAIN-MODERATE Prescribed by: ERIK HOWARD on 08/14/19441 Meclizine HCl 25 Mg Tablet, 25-50 MG PO Q6H Prescribed by: ERIK HOWARD on 08/14/19419 Methylprednisolone 4 Mg Tab.ds.pk, 4 MG PO UD Prescribed by: ERIK HOWARD on 08/14/19419 Mupirocin 1 Gm Oin.pf.norberto, 1 GM TP BID Prescribed by: ERIK HOWARD on 08/14/19419 Ondansetron 8 Mg Tab.rapdis, 8 MG PO Q6H Prescribed by: ERIK HOWARD on 08/14/19419 Scopolamine 1 Each Patch.td72, 1 EACH TD Q72 HOURS Prescribed by: ERIK HOWARD on 08/14/19419 Patient Home Medication List Home Medication List Reviewed: Yes Review of Systems Review of Systems Constitutional: see HPI Eyes: No Symptoms Reported, Other (denies visual changes) Ears, Nose, Mouth, Throat: no symptoms reported Respiratory: no symptoms reported Cardiovascular: no symptoms reported Genitourinary: no symptoms reported Musculoskeletal: no symptoms reported Skin: no symptoms reported Psychiatric/Neurological: No Symptoms Reported Past Oasmdml-Rhslrr-Kymoje Hx Patient Social History Alcohol Beverage of Choice: Beer Drug of Choice: THC Type Used: Cigarettes Recent Hopitalizations: No Immunizations Up To Date Tetanus Booster (TDap): More than 5yrs Seasonal Allergies Seasonal Allergies: No Past Medical History Surgeries: No Respiratory: No Cardiac: No Neurological: Yes Headaches /Migraines Genitourinary: No Gastrointestinal: No Musculoskeletal: No Endocrine: No HEENT: No Cancer: No Psychosocial: No Integumentary: No Blood Disorders: No Physical Exam Vital Signs Vital Signs - First Documented 08/15/19 11:45 Temp 36.9 Pulse 68 Resp 18 B/P (MAP) 150/95 (113) Pulse Ox 98 Capillary Refill : Height, Weight, BMI Height: '" Weight: lbs. oz. kg; 16.00 BMI Method: General Appearance: WD/WN, no apparent distress HEENT: PERRL/EOMI, normal ENT inspection, other (no nystagmus) Neck: non-tender, full range of motion Respiratory: no respiratory distress, no accessory muscle use Gastrointestinal: normal bowel sounds, non tender Extremities: normal range of motion, non-tender Psychiatric: alert, oriented x 3 Crainal Nerves: normal hearing, normal speech Skin: normal color, warm/dry Comments Strength bilateral upper and lower extremities /5 Progress/Results/Core Measures Results/Orders Lab Results Laboratory Tests Test 08/15/19 12:15 Range/Units White Blood Count 9.6 4.3-11.0 10^3/uL Red Blood Count 4.96 4.35-5.85 10^6/uL Hemoglobin 15.4 13.3-17.7 G/DL Hematocrit 47 40-54 % Mean Corpuscular Volume 94 80-99 FL Mean Corpuscular Hemoglobin 31 25-34 PG Mean Corpuscular Hemoglobin Concent 33 32-36 G/DL Red Cell Distribution Width 13.6 10.0-14.5 % Platelet Count 222 130-400 10^3/uL Mean Platelet Volume 10.2 7.4-10.4 FL Neutrophils (%) (Auto) 86 H 42-75 % Lymphocytes (%) (Auto) 9 L 12-44 % Monocytes (%) (Auto) 5 0-12 % Eosinophils (%) (Auto) 0 0-10 % Basophils (%) (Auto) 0 0-10 % Neutrophils # (Auto) 8.3 H 1.8-7.8 X 10^3 Lymphocytes # (Auto) 0.8 L 1.0-4.0 X 10^3 Monocytes # (Auto) 0.5 0.0-1.0 X 10^3 Eosinophils # (Auto) 0.0 0.0-0.3 10^3/uL Basophils # (Auto) 0.0 0.0-0.1 10^3/uL Neutrophils % (Manual) 82 % Lymphocytes % (Manual) 10 % Monocytes % (Manual) 8 % Blood Morphology Comment NORMAL Prothrombin Time 12.7 12.2-14.7 SEC INR Comment 0.9 0.8-1.4 Sodium Level 144 135-145 MMOL/L Potassium Level 4.0 3.6-5.0 MMOL/L Chloride Level 108 H 98-107 MMOL/L Carbon Dioxide Level 28 21-32 MMOL/L Anion Gap 8 5-14 MMOL/L Blood Urea Nitrogen 5 L 7-18 MG/DL Creatinine 0.82 0.60-1.30 MG/DL Estimat Glomerular Filtration Rate > 60 BUN/Creatinine Ratio 6 Glucose Level 104 70-105 MG/DL Calcium Level 10.3 H 8.5-10.1 MG/DL Corrected Calcium 8.5-10.1 MG/DL Total Bilirubin 1.3 H 0.1-1.0 MG/DL Aspartate Amino Transf (AST/SGOT) 60 H 5-34 U/L Alanine Aminotransferase (ALT/SGPT) 48 0-55 U/L Alkaline Phosphatase 87 40-136 U/L Total Protein 7.8 6.4-8.2 GM/DL Albumin 4.9 H 3.2-4.5 GM/DL Serum Alcohol < 10 <10 MG/DL My Orders Orders - MCMANUS,PETER J MANAGER DATA Cbc With Automated Diff (08/15/19 11:56) Comprehensive Metabolic Panel (08/15/19 11:56) Protime With Inr (08/15/19 11:56) Ed Iv/Invasive Line Start (08/15/19 11:56) Outside Films For Comparison (08/15/19 ) Alcohol (08/15/19 12:26) Manual Differential (08/15/19 12:15) Vital Signs/I&O 08/15/19 11:45 Temp 36.9 Pulse 68 Resp 18 B/P (MAP) 150/95 (113) Pulse Ox 98 Departure Communication (Admissions) Dr. Alcala at the [facility] has accepted the patient in transfer. Impression Primary Impression: Intracranial space-occupying lesion Additional Impression: Cerebellar infarct Disposition: XFER SHT-TRM HOSP Condition: Stable Departure-Patient Inst. Referrals: GEE LOPEZ MD (PCP/Family) Primary Care Physician FERNANDEZ MCMANUS APRN Aug 15, 2019 12:01 POS
[2019-08-15 12:31] LABS: BASOPHILS % (AUTO) 0 % (0-10); EOSINOPHILS % (AUTO) 0 % (0-10); HEMATOCRIT 47 % (40-54); HEMOGLOBIN 15.4 G/DL (13.3-17.7); LYMPHOCYTES # (AUTO) 0.8 X 10^3 (1.0-4.0); LYMPHOCYTES % (AUTO) 9 % (12-44); MEAN CORPUSCULAR HEMOGLOBIN 31 PG (25-34); MEAN CORPUSCULAR HGB CONC 33 G/DL (32-36); MEAN CORPUSCULAR VOLUME 94 FL (80-99); MEAN PLATELET VOLUME 10.2 FL (7.4-10.4); MONOCYTES # (AUTO) 0.5 X 10^3 (0.0-1.0); MONOCYTES % (AUTO) 5 % (0-12); NEUTROPHILS # (AUTO) 8.3 X 10^3 (1.8-7.8); NEUTROPHILS % (AUTO) 86 % (42-75); PLATELET COUNT 222 10^3/uL (130-400); RED CELL DISTRIBUTION WIDTH 13.6 % (10.0-14.5); WHITE BLOOD COUNT 9.6 10^3/uL (4.3-11.0)
[2019-08-15 12:52] LABS: INR 0.9 (0.8-1.4); PROTHROMBIN TIME PATIENT 12.7 SEC (12.2-14.7)
[2019-08-15 12:56] LABS: LYMPHOCYTES % (MANUAL) 10 %; MONOCYTES % (MANUAL) 8 %; NEUTROPHILS % (MANUAL) 82 %; RBC MORPH NORMAL
[2019-08-15 12:58] LABS: ALANINE AMINOTRANSFERASE 48 U/L (0-55); ALBUMIN 4.9 GM/DL (3.2-4.5); ALKALINE PHOSPHATASE 87 U/L (40-136); BILIRUBIN,TOTAL 1.3 MG/DL (0.1-1.0); BUN/CREATININE RATIO 6; CALCIUM 10.3 MG/DL (8.5-10.1); CARBON DIOXIDE 28 MMOL/L (21-32); CHLORIDE 108 MMOL/L (98-107); CREATININE SERUM 0.82 MG/DL (0.60-1.30); GFR ESTIMATED > 60; GLUCOSE 104 MG/DL (70-105); SODIUM 144 MMOL/L (135-145); TOTAL PROTEIN 7.8 GM/DL (6.4-8.2)
--- NOTE | 2019-08-15 14:40 | NUR ---
CONSENT FOR TRANSFER SIGNED
--- NOTE | 2019-08-15 14:52 | NUR ---
REPORT TO [facility] H[facility]ALGO BY Marianne QUILES
--- NOTE | 2019-08-15 15:05 | NUR ---
CON'T TO WAIT FOR EMS TO TRANSFER PATIENT
[2019-08-15 15:06] VITALS: BP 139/95
--- NOTE | 2019-08-15 15:06 | NUR ---
EMS IS HERE FOR TRANSFER TO [facility]
--- OUTSIDE RECORDS SUMMARY | 2019-09-10 05:00 | XMS REPORT | Continuity of Care Document ---
Author Organization Unknown Address Unknown Phone Unavailable Allergies Active Description Code Type Severity Reaction Onset Reported/Identified Relationship to Patient Clinical Status Yes No Allergy Information Available [id number] Drug Allergy Unknown N/A 019 Medications There [...] NR Blood erythrocyte morphology finding identification NORMAL [facility] Comprehensive metabolic panel - 08/15/19 12:15 Serum [...] Status Pt. Type Provider Facility Loc./Unit Complaint [id number] 08/15/2019 11:42:00 15:11:00 DIS Emergency FERNANDEZ MCMANUS APRN [facility] ER HEAD INJ [id number] 08/14/2019 08:42:00 23:59:59 CLS Preadmit ERIK HOWARD DO [facility] RAD INTRACRANIAL MASS [id number] 08/14/2019 01:28:00 05:39:00 DIS Outpatient ERIK HOWARD DO [facility] ER FALL DIZZINESS/HEADACHE NAUSEA EARS RINGING
== END 2019-08-15 15:11 | disposition short-term general hospital (02) ==
LOC: EDUNIT# 11:41 → ER 11:42
DX: I63.9 Cerebral infarction, unspecified (principal); R90.0 Intracranial space-occupying lesion found on diagnostic imaging of central nervous system; G43.909 Migraine, unspecified, not intractable, without status migrainosus; Z87.828 Personal history of other (healed) physical injury and trauma
CPT/HCPCS: 36415; 80053; 80320; 85007; 85027; 85610